=== PATIENT | female | born 1980 | race African-American/Black ===

== ENCOUNTER 2017-05-10 19:31 | Emergency (ER) | payer OTHER ==
[~2017-05-10] VITALS: Ht 157.5 cm; Wt 82.1 kg
[2017-05-10 20:23] LABS: BASO # 0.1 x10^3/uL (0.0-0.2); BASO % 1 % (0-3); EOS % 3 % (0-3); HEMATOCRIT 39.9 % (36.0-47.0); HEMOGLOBIN 13.1 g/dL (12.0-15.5); LYMPH # 2.5 x10^3/uL (1.0-4.8); LYMPH % 36 % (24-48); MEAN CORPUSCULAR HEMOGLOBIN 28 pg (25-35); MEAN CORPUSCULAR HGB CONC 33 g/dL (31-37); MEAN CORPUSCULAR VOLUME 85 fL (79-100); MONO % 8 % (0-9); NEUT % 52 % (31-73); PLATELET COUNT 210 x10^3/uL (140-400); RED CELL DISTRIBUTION WIDTH 13.2 % (11.5-14.5); WHITE BLOOD COUNT 6.8 x10^3/uL (4.0-11.0)
[2017-05-10 20:33] LABS: INR 1.1 (0.8-1.1); PROTHROMBIN TIME PATIENT 13.2 SEC (11.7-14.0)
[2017-05-10 20:36] LABS: CALCIUM 8.7 mg/dL (8.5-10.1); CREATININE 0.7 mg/dL (0.6-1.0); GFR 114.6; POTASSIUM 3.5 mmol/L (3.5-5.1)
[2017-05-10 20:37] LABS: ALBUMIN/GLOBULIN RATIO 1.1 (1.0-1.7); TOTAL BILIRUBIN 0.2 mg/dL (0.2-1.0); TOTAL PROTEIN 7.7 g/dL (6.4-8.2)
[2017-05-10 22:17] VITALS: BP 132/80
--- NOTE | 2017-05-10 22:26 | PHYS DOC ---
Past Medical History Past Medical History: Cancer, Hypertension Additional Past Medical Histor: CERVICAL CA Past Surgical History: Hysterectomy Alcohol Use: Occasionally Drug Use: None Adult General Chief Complaint Chief Complaint: LOWER EXTREMITY SWELLING HPI HPI Patient is a 36 year old female who presents with left leg pain & swelling. The patient reports onset of symptoms on Tuesday after traveling to [place] by car & sitting on a bar stool for most of the evening. She states she commonly has leg swelling after sitting for long periods of time with her legs hanging down. She says usually this improves spontaneously, but she continues to have leg pain & swelling after returning home. She denies fevers/chills, skin changes, chest pain, shortness of breath. Denies recent trauma. No history of DVT or PE, denies CHF. She does have history of hypertension & cervical cancer. Nonsmoker, denies OCP use. She has a PCP at [facility], Dr. Waggoner. Review of Systems Review of Systems Constitutional: Denies fever or chills HENT: Denies nasal congestion or sore throat Respiratory: Denies cough or shortness of breath Cardiovascular: Denies chest pain, reports edema GI: Denies abdominal pain, nausea, vomiting Musculoskeletal: Reports LLE pain & swelling. Integument: Denies rash or skin lesions Neurologic: Denies headache, focal weakness or sensory changes All other systems were reviewed and found to be within normal limits, except as documented in this note. Current Medications Current Medications Current Medications Medications (Trade) Dose Ordered Sig/Anisa Start Time Stop Time Status Last Admin Dose Admin Enoxaparin Sodium (Lovenox 80mg Syringe) 80 mg 1X ONCE 05/10/17 22:15 05/10/17 22:16 DC 05/10/17 22:42 80 MG Allergies Allergies Allergies Coded Allergies Type Severity Reaction Last Updated Verified No Known Drug Allergies 05/10/14 No Physical Exam Physical Exam Constitutional: obese, no acute distress, non-toxic appearance. HENT: Normocephalic, atraumatic, bilateral external ears normal, oropharynx moist, nose normal. Eyes: PERRLA, EOMI, conjunctiva normal, no discharge. Neck: supple, no stridor. Cardiovascular: RRR, no murmurs, no edema. Lungs & Thorax: LCTAB, no wheezing, no respiratory distress. Abdomen: soft, nontender, nondistended. Skin: Warm, dry, no erythema, no rash. Back: No tenderness. Extremities: left lower extremity 2+ pitting edema from ankle to mid thigh with calf tenderness, +gina sign, no focal bony tenderness or ankle/knee tenderness , normal ROM to knee & ankle, dp/pt 2+, sensation intact to foot, symmetric strength to bilateral lower extremities. Neurologic: Alert and oriented X 3, no focal deficits noted. Psychologic: Affect normal, judgement normal, mood normal. Current Patient Data Vital Signs Vital Signs Date Time Temp Pulse Resp B/P (MAP) Pulse Ox O2 Delivery O2 Flow Rate FiO2 05/10/17 22:17 80 16 132/80 (97) 100 Room Air 05/10/17 19:43 98.1 98.1 Lab Values Laboratory Tests Test 05/10/17 20:10 White Blood Count 6.8 x10^3/uL (4.0-11.0) Red Blood Count 4.70 x10^6/uL (3.50-5.40) Hemoglobin 13.1 g/dL (12.0-15.5) Hematocrit 39.9 % (36.0-47.0) Mean Corpuscular Volume 85 fL (79-100) Mean Corpuscular Hemoglobin 28 pg (25-35) Mean Corpuscular Hemoglobin Concent 33 g/dL (31-37) Red Cell Distribution Width 13.2 % (11.5-14.5) Platelet Count 210 x10^3/uL (140-400) Neutrophils (%) (Auto) 52 % (31-73) Lymphocytes (%) (Auto) 36 % (24-48) Monocytes (%) (Auto) 8 % (0-9) Eosinophils (%) (Auto) 3 % (0-3) Basophils (%) (Auto) 1 % (0-3) Neutrophils # (Auto) 3.5 x10^3uL (1.8-7.7) Lymphocytes # (Auto) 2.5 x10^3/uL (1.0-4.8) Monocytes # (Auto) 0.5 x10^3/uL (0.0-1.1) Eosinophils # (Auto) 0.2 x10^3/uL (0.0-0.7) Basophils # (Auto) 0.1 x10^3/uL (0.0-0.2) Prothrombin Time 13.2 SEC (11.7-14.0) Prothrombin Time INR 1.1 (0.8-1.1) PTT 35 SEC (24-38) Sodium Level 140 mmol/L (136-145) Potassium Level 3.5 mmol/L (3.5-5.1) Chloride Level 102 mmol/L (98-107) Carbon Dioxide Level 30 mmol/L (21-32) Anion Gap 8 (6-14) Blood Urea Nitrogen 16 mg/dL (7-20) Creatinine 0.7 mg/dL (0.6-1.0) Estimated GFR (Cockcroft-Gault) 114.6 BUN/Creatinine Ratio 23 (6-20) H Glucose Level 103 mg/dL (70-99) H Calcium Level 8.7 mg/dL (8.5-10.1) Total Bilirubin 0.2 mg/dL (0.2-1.0) Aspartate Amino Transferase (AST) 25 U/L (15-37) Alanine Aminotransferase (ALT) 35 U/L (14-59) Alkaline Phosphatase 59 U/L (46-116) Total Protein 7.7 g/dL (6.4-8.2) Albumin 4.0 g/dL (3.4-5.0) Albumin/Globulin Ratio 1.1 (1.0-1.7) Laboratory Tests 05/10/17 20:10 Laboratory Tests 05/10/17 20:10 EKG EKG [] Radiology/Procedures Radiology/Procedures PROCEDURE: VENOUS LOWER EXTREMITY LEFT Left lower extremity venous duplex study 05/10/2017 Clinical History: Left leg swelling. Technique: Using a combination of real time ultrasound imaging and color-flow and pulse Doppler imaging techniques along with graded compression and augmentation, duplex evaluation of the deep venous system of the left lower extremity was performed. Multiple images were obtained. Findings: There is no sonographic evidence of deep venous thrombosis involving the visualized deep venous structures of left lower extremity. Impression: Negative study. Electronically signed by: Leonides Del Rosario MD (05/10/2017 10:25 PM) [facility] DICTATED and SIGNED BY: LEONIDES DEL ROSARIO MD DATE: 05/10/17 222[] Course & Med Decision Making Course & Med Decision Making Pertinent Labs and Imaging studies reviewed. (See chart for details) The patient presents with lower extremity pain and swelling. Clinically concerning for DVT & she did have recent history of car trip. Venous doppler was negative for DVT. Patient's pain was well controlled without intervention here. At this time more suspicious for DVT than other diagnosis such as muscle strain, cellulitis. She does not have symptoms of PE. Discussed with Dr. Waggoner, who is able to see her tomorrow in the clinic, will call for appointment in the AM. Will give treatment dose of lovenox here prior to discharge, send with discs of today's ultrasound. Patient understands plan & agrees. Would recommend elevation of lower extremity & compression stocking between now & time of follow up. Come back for high fever, skin redness/warmth , severe shortness of breath or chest pain, any otherwise worsening condition. Discharged home in stable condition. [] Dragon Disclaimer Dragon Disclaimer This electronic medical record was generated, in whole or in part, using a voice recognition dictation system. Departure Departure Impression: Primary Impression: Swelling of lower extremity Disposition: 01 HOME, SELF-CARE Condition: STABLE Referrals: NO PCP (PCP) Patient Instructions: Peripheral Edema Additional Instructions: You were seen in the emergency department today for leg swelling. Your ultrasound did not show a DVT or blood clot, but your exam is concerning that you could still have one. You were treated with lovenox tonight. You should receive a call from Dr. Waggoner's clinic in the morning for an appointment to be seen tomorrow. Please call the office if you do not get a call. She can discuss with you whether you should continue treatment or have a repeated ultrasound at that time. Tonight try to elevate your leg & you can wear compression stockings. Come back for severe chest pain or shortness of breath, or any otherwise worsening condition. RONAL BREWSTER MD May 10, 2017 22:26
== END 2017-05-10 22:50 | disposition home or self-care (01) ==
LOC: ER 19:31
DX: M79.605 Pain in left leg (principal); M79.89 Other specified soft tissue disorders; I10 Essential (primary) hypertension; Z90.710 Acquired absence of both cervix and uterus
CPT/HCPCS: 36415; 80053; 85025; 85610; 85730; 93971; 96372; 99285; J1650